=== PATIENT | female | born 1950 | race African-American/Black ===

== ENCOUNTER 2018-11-07 12:25 | Outpatient (CLI) | payer MEDICARE ==
--- NOTE | 2018-11-07 12:47 | RAD ---
Exam: 3 views of the lumbosacral spine HISTORY: Low back pain COMPARISON: None FINDINGS: 3 views of the lumbosacral spine shows normal height and alignment of the vertebral bodies and intervertebral discs without fracture. There is grade 1 anterolisthesis of L4 and L5. Endplate degenerative changes are seen surrounding L3/4 with moderate surrounding osteophytes. The sacroiliac joints are unremarkable. IMPRESSION: Mild to moderate degenerative changes of the lumbar spine without acute osseous abnormali ty.
== END 2018-11-07 12:26 | disposition home or self-care (01) ==
LOC: SCSRAD 12:25
PROVIDERS: ATTEND Family Medicine
DX: M54.41 Lumbago with sciatica, right side (principal); M47.816 Spondylosis without myelopathy or radiculopathy, lumbar region
CPT/HCPCS: 36415; 72100; 80053; 80061; 81003; 81015; 84439; 84443; 85025